=== PATIENT | male | born 1960 | race Caucasian/White ===

== ENCOUNTER 2023-06-29 12:20 | Emergency (ER) | payer OTHER ==
[~2023-06-29] VITALS: Ht 172.7 cm; Wt 95.3 kg
[2023-06-29 13:16] LABS: BASOPHILS # (AUTO) 0.1 K/uL (0.0-0.2); BASOPHILS % (AUTO) 0.9 % (0.0-2.0); EOSINOPHILS # (AUTO) 0.2 K/uL (0.0-0.7); EOSINOPHILS % (AUTO) 3.2 % (0.0-6.0); HEMATOCRIT 44 % (39-51); HEMOGLOBIN 14.9 g/dL (13.5-17.5); LYMPHOCYTES # (AUTO) 2.1 K/uL (0.8-4.8); LYMPHOCYTES % (AUTO) 36.5 % (20.0-44.0); MEAN CORPUSCULAR HEMOGLOBIN 32 PG (26.0-33.0); MEAN CORPUSCULAR HGB CONC 34 g/dl (31.0-36.0); MEAN CORPUSCULAR VOLUME 95 fL (80-96); MONOCYTES # (AUTO) 0.4 K/uL (0.1-1.30); MONOCYTES % (AUTO) 7.4 % (2.0-12.0); PLATELET COUNT (AUTO) 176 K/uL (150-450); RED BLOOD CELL COUNT(AUTO) 4.67 MIL/uL (4.5-6.0); RED CELL DISTRIBUTION WIDTH 14.9 % (11.5-15.0); WHITE BLOOD COUNT (AUTO) 5.8 K/uL (4.3-11.0)
[2023-06-29 13:33] LABS: ALANINE AMINOTRANSFERASE 31 U/L (12-78); ALBUMIN 3.7 g/dL (3.4-5.0); ALKALINE PHOSPHATASE 81 U/L (46-116); ASPARTATE AMINOTRANSFERASE 16 U/L (15-37); BILIRUBIN,DIRECT 0.1 mg/dL (0.0-0.2); BILIRUBIN,TOTAL 0.5 mg/dL (0.2-1.0); CALCIUM, SERUM 9.2 mg/dL (8.5-10.1); CARBON DIOXIDE 25 mmol/L (21-32); CHLORIDE 104 mmol/L (98-107); CREATININE 0.7 mg/dL (0.6-1.3); GLUCOSE 112 mg/dL (74-106); POTASSIUM 3.9 mmol/L (3.5-5.1); SODIUM SERUM 139 mmol/L (136-145); UREA NITROGEN, BLOOD 14 mg/dL (7-18)
[2023-06-29] MEDS ORDERED: ONDA4TAB5 PO (14:09)
[2023-06-29] MEDS ORDERED: IBUP-1955 PO (14:09)
[2023-06-29 14:32] VITALS: BP 131/84; TEMP 97.9; O2SAT 98
== END 2023-06-29 14:33 | disposition home or self-care (01) ==
LOC: ER 12:27
DX: S09.90XA Unspecified injury of head, initial encounter (principal); R42 Dizziness and giddiness; I25.2 Old myocardial infarction; V99.XXXA Unspecified transport accident, initial encounter; Y93.89 Activity, other specified; Y92.89 Other specified places as the place of occurrence of the external cause; Y99.8 Other external cause status
CPT/HCPCS: 36415; 70450-TC; 71045-TC; 80048-TC; 80076-TC; 84484-TC; 85025-TC

== ENCOUNTER 2024-12-29 10:24 | Emergency (ER) | payer OTHER ==
[~2024-12-29] VITALS: Ht 185.4 cm; Wt 92.1 kg
[~2024-12-29 10:24] MED LIST: IBUP-1955 PO; ONDA4TAB5 PO
[2024-12-29 10:44] VITALS: TEMP 97.8
[2024-12-29 12:16] VITALS: BP 114/67; O2SAT 98
== END 2024-12-29 12:00 | disposition home or self-care (01) ==
LOC: ER 10:28
DX: S92.421A Displaced fracture of distal phalanx of right great toe, initial encounter for closed fracture (principal); F17.200 Nicotine dependence, unspecified, uncomplicated; Z79.899 Other long term (current) drug therapy; W01.0XXA Fall on same level from slipping, tripping and stumbling without subsequent striking against object, initial encounter; Y93.89 Activity, other specified; Y92.89 Other specified places as the place of occurrence of the external cause; Y99.8 Other external cause status
CPT/HCPCS: 73630-TC